=== PATIENT | male | born 1975 | race Caucasian/White ===

== ENCOUNTER 2023-04-12 10:18 | Emergency (ER) | payer BC, SELFPAY ==
[2023-04-12] MEDS ORDERED: Morphine 4 MG/ML VIAL ONE (11:10)
[2023-04-12 11:25] LABS: #Basophils 0.1 10x3/uL (0.0-0.2); #Eosinphils 0.3 10x3/uL (0.0-0.5); #Monocytes 1.2 10x3/uL (0.0-1.1); #Neutrophils 8.9 10x3/uL (1.5-8.4); %Eosinophils 2.7 % (0.0-6.0); %Lymphocytes 14.3 % (18.0-47.0); %Neutrophils 71.7 % (40.0-75.0); Hemoglobin 13.4 g/dL (13.5-17.5); Mean Corpuscular HGB CONC 32.8 g/dL (32.0-36.0); Mean Corpuscular Hemoglobin 30.3 pg (27.0-33.0); Mean Corpuscular Volume 92.3 fl (81.2-95.1); Mean Platelet Volume 9.7 fl (7.4-10.4); Platelet Count 393 10x3/uL (150-450); RBC Distribution Width 15.1 % (11.5-14.5); Red Blood Cell (RBC) Count 4.42 10x6/uL (4.32-5.72); White Blood Cell (WBC) Count 12.4 10x3/uL (3.5-10.5)
[2023-04-12 11:40] LABS: ALT (SGPT) 19 U/L (8-55); AST (SGOT) 21 U/L (5-34); Albumin 4.4 g/dL (3.5-5.0); Alkaline Phosphatase 113 U/L (40-110); Anion Gap 16 mmol/L (10-20); BUN (Urea Nitrogen) 20 mg/dL (8.9-20.6); Bilirubin, Total 0.7 mg/dL (0.2-1.2); Calc. Creatinine Clearance 0 mL/min (70-130); Calcium 8.7 mg/dL (7.8-10.44); Carbon Dioxide 18 mmol/L (22-29); Chloride 107 mmol/L (98-107); Estimated GFR 37; Globulin 2.8 g/dL (2.4-3.5); Glucose 101 mg/dL (70-105); Protein, Total 7.2 g/dL (6.0-8.3); Sodium 136 mmol/L (136-145)
[2023-04-12] MEDS ORDERED: cefTRIAXone (ROCEPHIN) 1 GM VIAL ONE (13:05)
== END 2023-04-12 13:48 | disposition home or self-care (01) ==
LOC: CSHERS 10:18
DX: M01.X22 Direct infection of left elbow in infectious and parasitic diseases classified elsewhere (principal); I10 Essential (primary) hypertension; Z79.01 Long term (current) use of anticoagulants; Z79.899 Other long term (current) drug therapy
CPT/HCPCS: 36415; 80053; 83605; 85025; 87040; 96374; 96375; J0696; J2270

== ENCOUNTER 2023-04-15 15:50 | Inpatient (IN) | payer BC, SELFPAY ==
[~2023-04-15 15:50] MED LIST: Iopamidol 300 61% 100 ML VIAL FS ONE
[2023-04-15] MEDS ORDERED: Cefepime 2 GM VIAL ONE (17:23)
[2023-04-15] MEDS ORDERED: Ondansetron PF 4 MG/2 ML Vial ONE (17:23)
[2023-04-15] MEDS ORDERED: Morphine 4 MG/ML VIAL ONE (17:23)
[2023-04-15 17:31] LABS: #Basophils 0.1 10x3/uL (0.0-0.2); #Eosinphils 0.3 10x3/uL (0.0-0.5); #Monocytes 0.6 10x3/uL (0.0-1.1); #Neutrophils 5.5 10x3/uL (1.5-8.4); %Basophils 1.2 % (0.0-2.0); %Eosinophils 3.2 % (0.0-6.0); %Lymphocytes 17.2 % (18.0-47.0); %Monocytes 7.1 % (0.0-10.0); Hematocrit 35.6 % (38.8-50.0); Hemoglobin 11.4 g/dL (13.5-17.5); Mean Corpuscular Hemoglobin 30.8 pg (27.0-33.0); Mean Corpuscular Volume 96.2 fl (81.2-95.1); Mean Platelet Volume 9.8 fl (7.4-10.4); Platelet Count 364 10x3/uL (150-450); RBC Distribution Width 15.4 % (11.5-14.5); White Blood Cell (WBC) Count 7.8 10x3/uL (3.5-10.5)
[2023-04-15 17:50] LABS: ALT (SGPT) 20 U/L (8-55); AST (SGOT) 21 U/L (5-34); Albumin 3.8 g/dL (3.5-5.0); Alkaline Phosphatase 96 U/L (40-110); Anion Gap 17 mmol/L (10-20); BUN (Urea Nitrogen) 18 mg/dL (8.9-20.6); Bilirubin, Total 0.4 mg/dL (0.2-1.2); CK (CPK) 190 U/L (30-200); Calc. Creatinine Clearance 0 mL/min (70-130); Carbon Dioxide 19 mmol/L (22-29); Chloride 108 mmol/L (98-107); Estimated GFR 58; Globulin 2.2 g/dL (2.4-3.5); Glucose 107 mg/dL (70-105); Potassium 4.6 mmol/L (3.5-5.1); Sodium 139 mmol/L (136-145)
[2023-04-15 17:58] LABS: PTT 80.9 sec (22.0-33.0); Prothrombin Time 85.3 sec (9.5-12.1)
[2023-04-15 18:02] LABS: INR-International Normal Ratio 8.2
[2023-04-15] MEDS ORDERED: VANCOMYCIN 1.25 GM/250 ML BAG 1.25 GM in Premix Bag 1 BAG IVPB SCH (18:30)
[2023-04-15] MEDS ORDERED: Calcium Carbonate 500 MG ChewTAB PO PRN (21:31)
[2023-04-15] MEDS ORDERED: Guaifenesin DM 100-10/5 ML UDCUP PO PRN (21:31)
[2023-04-15] MEDS ORDERED: Senokot S 8.6-50 MG TAB PO PRN (21:31)
[2023-04-15] MEDS ORDERED: Ondansetron PF 4 MG/2 ML Vial IVP PRN (21:31)
[2023-04-15] MEDS ORDERED: Acetaminophen 325 MG TAB PO PRN (21:31)
[2023-04-15] MEDS ORDERED: HYDROcodone/Acetaminophen 5/325 mg Tablet PO PRN (21:31)
[2023-04-15] MEDS ORDERED: Phytonadione 10 MG in Sodium Chloride 0.9% 50 ML IVPB SCH (22:00)
[2023-04-15 22:49] VITALS: BMI 25.1
[2023-04-16] MEDS ORDERED: HYDROcodone/Acetaminophen 5/325 mg Tablet ONE (01:58)
[2023-04-16 02:41] LABS: #Basophils 0.1 10x3/uL (0.0-0.2); #Eosinphils 0.3 10x3/uL (0.0-0.5); #Monocytes 0.5 10x3/uL (0.0-1.1); #Neutrophils 4.9 10x3/uL (1.5-8.4); %Basophils 1.1 % (0.0-2.0); %Eosinophils 3.8 % (0.0-6.0); %Lymphocytes 19.1 % (18.0-47.0); %Monocytes 7.6 % (0.0-10.0); %Neutrophils 68.1 % (40.0-75.0); Hematocrit 35.2 % (38.8-50.0); Hemoglobin 11.3 g/dL (13.5-17.5); Mean Corpuscular HGB CONC 32.1 g/dL (32.0-36.0); Mean Corpuscular Hemoglobin 30.3 pg (27.0-33.0); Mean Corpuscular Volume 94.4 fl (81.2-95.1); Mean Platelet Volume 9.5 fl (7.4-10.4); Platelet Count 360 10x3/uL (150-450); RBC Distribution Width 15.3 % (11.5-14.5); Red Blood Cell (RBC) Count 3.73 10x6/uL (4.32-5.72); White Blood Cell (WBC) Count 7.1 10x3/uL (3.5-10.5)
[2023-04-16 02:47] LABS: INR-International Normal Ratio 2.4; PTT 41.2 sec (22.0-33.0); Prothrombin Time 25.2 sec (9.5-12.1)
[2023-04-16 03:02] LABS: Anion Gap 14 mmol/L (10-20); BUN (Urea Nitrogen) 15 mg/dL (8.9-20.6); CK (CPK) 146 U/L (30-200); Calc. Creatinine Clearance 83 mL/min (70-130); Calcium 8.3 mg/dL (7.8-10.44); Carbon Dioxide 20 mmol/L (22-29); Chloride 108 mmol/L (98-107); Estimated GFR 74; Glucose 92 mg/dL (70-105); Potassium 4.3 mmol/L (3.5-5.1); Sodium 138 mmol/L (136-145)
[2023-04-16] MEDS ORDERED: Cefepime 1 GM VIAL ONE (05:17)
[2023-04-16] MEDS: Cefepime 1 GM in Sodium Chloride 0.9% 100 ML IVPB SCH ×2 (05:23→18:16)
[2023-04-16] MEDS ORDERED: Atorvastatin Calcium 40 MG TAB ONE (09:45)
[2023-04-16] MEDS ORDERED: Furosemide 20 MG/2 ML VIAL ONE (09:46)
[2023-04-16] MEDS: VANCOMYCIN 1.25 GM/250 ML BAG 1.25 GM in Premix Bag 1 BAG IVPB SCH ×2 (10:07→21:13)
[2023-04-16] MEDS: Atorvastatin Calcium 20 MG TAB PO SCH (10:07)
[2023-04-16] MEDS: Amiodarone 200 MG TAB PO SCH (10:07)
[2023-04-16] MEDS: Empagliflozin 25 MG TAB PO SCH (10:07)
[2023-04-16] MEDS: Furosemide 20 MG TAB PO SCH (10:08)
[2023-04-16] MEDS: Sacubitril 49 MG/Valsartan 51 MG TABLET PO SCH ×2 (10:09→21:42)
[2023-04-16] MEDS: Spironolactone 25 MG TAB PO SCH (10:09)
[2023-04-16] MEDS: Morphine 4 MG/ML VIAL SLOW IVP PRN (22:48)
[2023-04-17] MEDS ORDERED: Sodium Chloride 0.9% 100 ML ONE (05:26)
[2023-04-17] MEDS: Cefepime 1 GM in Sodium Chloride 0.9% 100 ML IVPB SCH ×2 (05:26→18:46)
[2023-04-17 08:12] LABS: Vancomycin, Trough 19.1 ug/mL
[2023-04-17] MEDS: Empagliflozin 25 MG TAB PO SCH (08:57)
[2023-04-17] MEDS: Furosemide 20 MG TAB PO SCH (08:57)
[2023-04-17] MEDS: Amiodarone 200 MG TAB PO SCH (08:57)
[2023-04-17] MEDS: Atorvastatin Calcium 20 MG TAB PO SCH (08:57)
[2023-04-17] MEDS: Vancomycin HCl 1 GM in Sodium Chloride 0.9% 250 ML 250 ML IVPB SCH ×2 (08:58→21:29)
[2023-04-17] MEDS: Spironolactone 25 MG TAB PO SCH (08:58)
[2023-04-17] MEDS: Sacubitril 49 MG/Valsartan 51 MG TABLET PO SCH ×2 (09:00→21:35)
[2023-04-17] MEDS: VANCOMYCIN 1.25 GM/250 ML BAG 1.25 GM in Premix Bag 1 BAG IVPB SCH (09:08)
[2023-04-17] MEDS ORDERED: Warfarin Sodium 2 MG TAB PO SCH (17:00)
[2023-04-17] MEDS: Morphine 4 MG/ML VIAL SLOW IVP PRN (17:33)
[2023-04-18 04:34] LABS: #Basophils 0.1 10x3/uL (0.0-0.2); #Eosinphils 0.2 10x3/uL (0.0-0.5); #Monocytes 0.7 10x3/uL (0.0-1.1); #Neutrophils 6.2 10x3/uL (1.5-8.4); %Eosinophils 2.8 % (0.0-6.0); %Lymphocytes 16.6 % (18.0-47.0); %Monocytes 8.2 % (0.0-10.0); %Neutrophils 71.1 % (40.0-75.0); Hematocrit 37.3 % (38.8-50.0); Hemoglobin 12.6 g/dL (13.5-17.5); Mean Corpuscular HGB CONC 33.8 g/dL (32.0-36.0); Mean Corpuscular Hemoglobin 30.8 pg (27.0-33.0); Mean Corpuscular Volume 91.2 fl (81.2-95.1); Mean Platelet Volume 9.4 fl (7.4-10.4); Platelet Count 397 10x3/uL (150-450); RBC Distribution Width 14.7 % (11.5-14.5); Red Blood Cell (RBC) Count 4.09 10x6/uL (4.32-5.72); White Blood Cell (WBC) Count 8.7 10x3/uL (3.5-10.5)
[2023-04-18 04:45] LABS: INR-International Normal Ratio 1.1; Prothrombin Time 12.2 sec (9.5-12.1)
[2023-04-18 04:50] LABS: Anion Gap 15 mmol/L (10-20); BUN (Urea Nitrogen) 16 mg/dL (8.9-20.6); Calc. Creatinine Clearance 84 mL/min (70-130); Carbon Dioxide 20 mmol/L (22-29); Chloride 107 mmol/L (98-107); Estimated GFR 75; Glucose 99 mg/dL (70-105); Potassium 4.3 mmol/L (3.5-5.1); Sodium 138 mmol/L (136-145)
[2023-04-18] MEDS: Cefepime 1 GM in Sodium Chloride 0.9% 100 ML IVPB SCH (05:50)
[2023-04-18 06:25] VITALS: TEMP 97.8
[2023-04-18] MEDS ORDERED: WARFARIN SODIUM 4 MG PO SCH (09:00)
[2023-04-18] MEDS: Atorvastatin Calcium 20 MG TAB PO SCH (09:24)
[2023-04-18] MEDS: Furosemide 20 MG TAB PO SCH (09:24)
[2023-04-18] MEDS: Sacubitril 49 MG/Valsartan 51 MG TABLET PO SCH (09:24)
[2023-04-18] MEDS: Vancomycin HCl 1 GM in Sodium Chloride 0.9% 250 ML 250 ML IVPB SCH (09:24)
[2023-04-18] MEDS: Amiodarone 200 MG TAB PO SCH (09:24)
[2023-04-18] MEDS: Empagliflozin 25 MG TAB PO SCH (09:24)
[2023-04-18 09:26] VITALS: BP 153/73
[2023-04-18] MEDS: Spironolactone 25 MG TAB PO SCH (09:26)
== END 2023-04-18 11:00 | disposition home or self-care (01) | DRG 603 ==
LOC: CSHERS 15:50 → CSHERHOLD 21:04 → OBSVTOIN 21:31 → CSHTELE 04-16 17:38
PROVIDERS: ADMIT Student in an Organized Health Care Education/Training Program; ATTEND Hospitalist
DX: L03.114 Cellulitis of left upper limb (principal); I42.9 Cardiomyopathy, unspecified; D68.32 Hemorrhagic disorder due to extrinsic circulating anticoagulants; D62 Acute posthemorrhagic anemia; I12.9 Hypertensive chronic kidney disease with stage 1 through stage 4 chronic kidney disease, or unspecified chronic kidney disease; N18.30 Chronic kidney disease, stage 3 unspecified; E78.5 Hyperlipidemia, unspecified; I25.10 Atherosclerotic heart disease of native coronary artery without angina pectoris; M79.81 Nontraumatic hematoma of soft tissue; T45.515A Adverse effect of anticoagulants, initial encounter; D63.1 Anemia in chronic kidney disease; I48.0 Paroxysmal atrial fibrillation; M60.9 Myositis, unspecified; Z79.82 Long term (current) use of aspirin; Z79.01 Long term (current) use of anticoagulants; Z79.2 Long term (current) use of antibiotics; Z95.1 Presence of aortocoronary bypass graft; Z95.2 Presence of prosthetic heart valve; Z95.810 Presence of automatic (implantable) cardiac defibrillator; Z80.9 Family history of malignant neoplasm, unspecified; Z82.49 Family history of ischemic heart disease and other diseases of the circulatory system
CPT/HCPCS: 36415; 80048; 80053; 80202; 82550; 83605; 84484; 85025; 85610; 85652; 85730; 86140; 87040; 93005; 96365; 96366; 96367; 96375; J0692; J1650; J1940; J2270; J2405; J3370; J3430; J3490; J7050; Q9967